=== PATIENT | male | born 1950 | race Caucasian/White ===

== ENCOUNTER → 2016-08-05 | Outpatient (CLI) | payer OTHER ==
[2013-04-16 08:20] VITALS: BP 138/87
--- NOTE | 2016-08-05 13:00 | CT ---
HISTORY: Bilateral flank and low pelvic pain. History of prostate cancer. Study: CT abdomen and pelvis without IV or oral contrast Comparison: No priors Technique: Multiple axial images of the abdomen and pelvis were obtained from the lung bases to the pubic symph ysis without the administration of IV or oral contrast. Coronal and sagittal images are also review ed. Dose reduction techniques utilized automatic exposure control. Findings: There is elevation of the right hemidiaphragm with some linear atelectasis present in the right lung base. There are right and left coronary artery calcifications. The liver, spleen, pancreas, kidneys , and adrenal glands are unremarkable in their CT appearance. The gallbladder is unremarkable in its CT appearance. There are surgical clips present in the region of the esophagogastric junction. No significant mesenteric lymphadenopathy or stranding can be observed. No free fluid or free air is s een within the abdomen. No bowel wall thickening or bowel dilatation is present. Appendix is not di scretely identified. No pericecal mass or fluid collection seen. The colon is unremarkable. Specifi lizzy, there is no diverticulosis noted within the sigmoid colon. The urinary bladder is grossly unr emarkable. there is evidence of prostatectomy. A penile prosthesis is present with the reservoir pre sent in the right lower abdomen. There is considerable artifact present from patient's prosthesis. No acute osseous changes are seen. IMPRESSION: No renal mass, stone or hydronephrosis is seen. No evidence of bowel obstruction or perforation. Total prostatectomy with penile prosthesis. The resumed for is present in the right lower abdomen re gion. Right hip arthroplasty. Reported By:
== END ==
LOC: RAD 11:37
PROVIDERS: ATTEND Internal Medicine
DX: R31.0 Gross hematuria (principal)
CPT/HCPCS: 74176

== ENCOUNTER → 2016-09-12 | Outpatient (CLI) | payer SELFPAY ==
[2013-04-16 08:20] VITALS: BP 138/87
--- NOTE | 2016-09-12 11:46 | CT ---
CT Calcium Score Clinical information: 65-year-old male for coronary artery disease risk assessment. Comparison: CT thorax April 14, 2013. ECG Gating: Prospective Scan range: Pulmonary artery bifurcation to diaphragm. Findings: Examination quality: Good. Limitation: None. Total calcium score: 973 Total volume score: 798 mm3 Percentile: 75-90 % Artery scores Left main coronary artery: 34 Left anterior descending artery: 430 Left circumflex artery: 229 Right coronary artery: 280 Other findings: Cardiac chambers: Unremarkable. Cardiac valves: Unremarkable. Thoracic aorta: Unremarkable. Lungs: Unremarkable. Upper abdomen: Unremarkable. Impression: Total calcium score 973 suggest extensive atherosclerotic plaque with high likelihood of significant coronary narrowing and high risk of cardiac event within the next 5 years. Reported By:
== END ==
LOC: RAD 09:27
PROVIDERS: ATTEND Internal Medicine
DX: Z13.6 Encounter for screening for cardiovascular disorders (principal)

== ENCOUNTER 2023-02-12 15:19 | Inpatient (IN) ==
[2023-02-12] MEDS ORDERED: TUSSIONEX PENNKINETIC SUSP PO PRN (16:24)
[2023-02-12] MEDS ORDERED: XOPENEX 1.25 MG/3 ML NEBULE NEB ONE (16:30)
[2023-02-12 16:35] VITALS: BMI 31.0
--- NOTE | 2023-02-12 16:40 | EKG ---
Test Reason : sob Blood Pressure : */* mmHG Vent. Rate : 69 BPM Atrial Rate : 69 BPM P-R Int : 162 ms QRS Dur : 90 ms QT Int : 416 ms P-R-T Axes : 37 -6 39 degrees QTc Int : 445 ms Sinus rhythm with premature atrial complexes Otherwise normal ECG No previous ECGs available Confirmed by Jesus Chambers MD ([id number]) on 02/13/2023 10:07:06 AM Referred By: Confirmed By: Jesus Chambers MD
[2023-02-12] MEDS ORDERED: NS 1/2 1,000 ML IV 1,000 ML IV ONE (16:52)
[2023-02-12] MEDS: PULMICORT NEB TX 0.5 MG NEB SCH ×2 (16:52→20:51)
[2023-02-12] MEDS: XOPENEX 1.25 MG/3 ML NEBULE NEB SCH ×2 (16:59→20:51)
[2023-02-12] MEDS: ROBITUSSIN DM PO SCH ×2 (17:09→20:49)
[2023-02-12] MEDS: SOLU-Medrol 40 MG VIAL IV SCH ×2 (17:09→21:01)
[2023-02-12] MEDS: VSL#3 PO SCH (17:09)
[2023-02-12] MEDS: NS 1/2 1,000 ML IV 1,000 ML IV SCH (17:10)
[2023-02-12 17:14] LABS: HEMOGLOBIN 11.7 g/dL (13.5-18.0)
[2023-02-12 17:17] LABS: BASOPHILS # (AUTO) 0.1 X10^3/uL (0.0-0.1); BASOPHILS % (AUTO) 0.8 % (0.2-1.0); EOSINOPHILS # (AUTO) 0.1 x10^3/uL (0.0-0.2); EOSINOPHILS % (AUTO) 1.1 % (0.9-2.9); LYMPHOCYTES # (AUTO) 2.3 X10^3/uL (1.3-2.9); LYMPHOCYTES % (AUTO) 19.4 % (21.0-51.0); MEAN CORPUSCULAR HEMOGLOBIN 31.1 pg (27.0-34.0); MEAN CORPUSCULAR HGB CONC 32.5 g/dL (33.0-35.0); MEAN CORPUSCULAR VOLUME 95.5 fL (80.0-100.0); MEAN PLATELET VOLUME 8.9 fL (7.4-11.0); MONOCYTES # (AUTO) 1.2 x10^3/uL (0.3-0.8); MONOCYTES % (AUTO) 10.4 % (0.0-13.0); NEUTROPHILS # (AUTO) 7.9 x10^3/uL (2.2-4.8); NEUTROPHILS % (AUTO) 68.3 % (42.0-75.0); PLATELET COUNT 267 X10^3/uL (150.0-450.0); RED BLOOD COUNT 3.77 X10^6/uL (4.7-6.0); RED CELL DISTRIBUTION WIDTH 15.9 % (11.6-16.5); WHITE BLOOD COUNT 11.6 X10^3/uL (3.6-10.0)
[2023-02-12 17:27] LABS: ALANINE AMINOTRANSFERASE 126 Units/L (12-78); ALBUMIN 2.9 g/dL (3.4-5.0); ALKALINE PHOSPHATASE 55 Units/L (46-116); ASPARTATE AMINO TRANSFERASE 39 Units/L (15-37); BLOOD UREA NITROGEN 33 mg/dL (7-18); CALCIUM 8.5 mg/dL (8.5-10.1); CARBON DIOXIDE 29.6 mmol/L (21-32); CHLORIDE 101 mmol/L (98-107); COR CA(FOR HYPOALB) 9.4 mg/dL (8.5-10.1); CREATININE 1.31 mg/dL (0.70-1.30); GLUCOSE 93 mg/dL (65-99); POTASSIUM 3.7 mmol/L (3.5-5.1); SODIUM 139 mmol/L (136-145); TOTAL PROTEIN 6.5 g/dL (6.4-8.2); eGFR NON BLACK RACES 57 (>60)
[2023-02-12] MEDS: LEVAQUIN PREMIX IV 750 MG 750 MG/150 ML BAG IV SCH (17:43)
[2023-02-12] MEDS ORDERED: LEVAQUIN PREMIX IV 750 MG 750 MG/150 ML BAG IV ONE (17:47)
[2023-02-12] MEDS ORDERED: OMNIPAQUE 350 mg/mL 100 mL BTL 100 ML ONE (19:56)
[2023-02-12] MEDS ORDERED: NS 100 ML IV 100 ML ONE (19:56)
[2023-02-12] MEDS ORDERED: CONSULT PHARMACY - POTASSIUM & MAGNESIUM XX SCH (20:00)
--- NOTE | 2023-02-12 20:43 | CT ---
EXAM: CTA CHEST WITH INTRAVENOUS CONTRASTHISTORY: Elevated D-dimer.TECHNIQUE: Spiral axial CT images are obtained through the chest with the administration of intravenous contrast. Coronal, sagittal and 3D MIP images are reformatted.DOSIMETRY: Total DLP 307.38 mGycm; CTDI 53.88 mGyCOMPARISON: None available.FINDINGS:CARDIOVASCULAR: There is no evidence for pulmonary embolic disease. There is severe coronary atherosclerosis. There is borderline cardiomegaly with four-chamber enlargement. No pericardial effusion is seen. There is aortic atherosclerosis with approximately 4.2 cm fusiform ascending thoracic aortic aneurysm; no dissection or rupture.MEDIASTINUM AND ALON: No mass lesion, lymphadenopathy, emphysema, or abnormal fluid collection is seen.LUNGS: There is approximately 7 cm asymmetrical elevation of the right hemidiaphragm (cannot rule out diaphragmatic paralysis or any penetration), with resultant compressive consolidative right posterior lower lobe/basilar atelectasis (with air bronchograms). There is no lung mass, lung nodule, or endobronchial obstructing lesion seen. No pleural effusion or pneumothorax is evident.CHEST WALL: There are no chest wall lesions seen. The visualized bony structures are within normal limits. No axillary lymphadenopathy is noted.UPPER ABDOMEN: Limited views through the upper abdomen demonstrate no gross acute abnormality. Approximately 3 cm right upper pole renal cyst.IMPRESSION:1. No evidence for pulmonary embolic disease.2. Severe coronary atherosclerosis.3. Borderline cardiomegaly with four-chamber enlargement.4. Aortic atherosclerosis with approximately 4.2 cm fusiform ascending thoracic aortic aneurysm; no dissection or rupture.5. No acute parenchymal infiltrate, pleural effusion, or pneumothorax seen.6. Approximately 7 cm asymmetrical elevation of the right hemidiaphragm (cannot rule out diaphragmatic paralysis or any penetration), with resultant compressive consolidative right posterior lower lobe/basilar atelectasis (with air bronchograms).THIS IS AN ELECTRONICALLY VERIFIED FINAL [id number]/12/2023 8:40 PM - Electronically signed by Florentino Jesus
[2023-02-12] MEDS ORDERED: K-DUR TAB 20 MEQ PO SCH (21:00)
[2023-02-13] MEDS ORDERED: NS 1/2 1,000 ML IV 1,000 ML IV ONE ×2 (04:47→21:34)
[2023-02-13] MEDS: SOLU-Medrol 40 MG VIAL IV SCH ×3 (05:11→21:34)
[2023-02-13 05:22] LABS: BASOPHILS % (AUTO) 0.2 % (0.2-1.0); HEMATOCRIT 34.7 % (42.0-54.0); HEMOGLOBIN 11.5 g/dL (13.5-18.0); LYMPHOCYTES # (AUTO) 0.4 X10^3/uL (1.3-2.9); LYMPHOCYTES % (AUTO) 4.9 % (21.0-51.0); MEAN CORPUSCULAR HEMOGLOBIN 31.4 pg (27.0-34.0); MEAN CORPUSCULAR HGB CONC 33.3 g/dL (33.0-35.0); MEAN CORPUSCULAR VOLUME 94.5 fL (80.0-100.0); MEAN PLATELET VOLUME 8.5 fL (7.4-11.0); MONOCYTES # (AUTO) 0.2 x10^3/uL (0.3-0.8); NEUTROPHILS # (AUTO) 7.5 x10^3/uL (2.2-4.8); NEUTROPHILS % (AUTO) 92.9 % (42.0-75.0); PLATELET COUNT 243 X10^3/uL (150.0-450.0); RED BLOOD COUNT 3.67 X10^6/uL (4.7-6.0); RED CELL DISTRIBUTION WIDTH 16.3 % (11.6-16.5)
[2023-02-13 05:40] LABS: ALANINE AMINOTRANSFERASE 108 Units/L (12-78); ALBUMIN 2.7 g/dL (3.4-5.0); ALKALINE PHOSPHATASE 55 Units/L (46-116); ASPARTATE AMINO TRANSFERASE 28 Units/L (15-37); BLOOD UREA NITROGEN 27 mg/dL (7-18); CALCIUM 8.5 mg/dL (8.5-10.1); CHLORIDE 102 mmol/L (98-107); COR CA(FOR HYPOALB) 9.5 mg/dL (8.5-10.1); COR NA(FOR HYPERGLY) 138 mmol/L (136-145); CREATININE 1.04 mg/dL (0.70-1.30); GLUCOSE 157 mg/dL (65-99); POTASSIUM 4.6 mmol/L (3.5-5.1); SODIUM 137 mmol/L (136-145); TOTAL PROTEIN 6.3 g/dL (6.4-8.2); eGFR NON BLACK RACES > 60 (>60)
[2023-02-13] MEDS: NS 1/2 1,000 ML IV 1,000 ML IV SCH ×2 (05:59→21:36)
[2023-02-13 06:03] LABS: PLATELET MORPHOLOGY COMMENT NORMAL (NORMAL)
[2023-02-13 06:05] LABS: BAND NEUTROPHILS % 2 % (0-10)
--- NOTE | 2023-02-13 06:35 | RAD ---
EXAM:Two-view chestHISTORY:PneumoniaCOMPARISON:CTA chest 02/12/2023FINDINGS:Heart size is normal. Shaniqua are normal. Right hemidiaphragm is markedly elevated. No acute alveolar infiltrates or pleural effusions are identified. Bony thorax is unremarkable with exception of old healed rib fractures on the left and a right shoulder hemiarthroplasty.IMPRESSION:No definite infiltratesMarkedly elevated right hemidiaphragmTHIS IS AN ELECTRONICALLY VERIFIED FINAL GAMDAH1002/13/2023 6:32 AM - Electronically signed by Jasvir Olmedo MD
[2023-02-13] MEDS: VSL#3 PO SCH (08:28)
[2023-02-13] MEDS: LEVAQUIN PREMIX IV 750 MG 750 MG/150 ML BAG IV SCH (08:28)
[2023-02-13] MEDS: ROBITUSSIN DM PO SCH ×3 (08:29→21:34)
[2023-02-13] MEDS: XOPENEX 1.25 MG/3 ML NEBULE NEB SCH ×4 (08:45→21:00)
[2023-02-13] MEDS: PULMICORT NEB TX 0.5 MG NEB SCH ×2 (08:45→21:00)
[2023-02-13] MEDS: LOVENOX INJ 40 MG SYR SC SCH (11:05)
--- NOTE | 2023-02-13 13:21 | DR.UPDATE ---
H&P Update H&P Reviewed: Yes Any changes to H&P?: Yes Changes noted:: WAS A DIRECT ADMISSION FOR BACTERIAL BRONCHOPNEUMONIA AND COVID-19. AIT SWAB IN THE OFFICE WAS POSITIVE FOR KLEBISELLA PNEUMONIAE AT THE BEGINNING OF THE WEEK. HE WAS PRESCRIBED PAXLOVID LAST WEEK WHEN HE FIRST TESTED POSITIVE FOR COVID AND WAS THEN GIVEN A ROCEPHIN INJECTION AND PRESCRIBED AND CEFDINIR 300MG BID ON 02/10/23 FOR THE KLEBSIELLA. ON ADMISSION, HIS VITALS WERE: 98.7-69-18-97%-138/87. LABS WERE OBTAINED. WBC 11.6, RBC 3.77, HGB 11.7, HCT 36.0, PLT COUNT 267, D-DIMER 2.24, SODIUM 139, POTASSIUM 3.7, CHLORIDE 101, CARBON DIOXIDE 29.6, BUN 33, CREATININE 1.31, GLUCOSE 93, CALCIUM 8.5, TOTAL BILI 0.30, AST 39, ALT 126, ALK PHOS 55, TROPONIN 10.7, CRP 3.50, TOTAL PROTEIN 6.5, ALBUMIN 2.9. A CHEST CTA WAS OBTAINED ON ADMISSION AND REVEALED: 1. No evidence for pulmonary embolic Disease. 2. Tara re coronary atherosclerosis. 3. Borderline cardiomegaly with four-chamber enlargement. 4. Aortic atherosclerosis with approximately 4.2 cm fusiform ascending thoracic aortic aneurysm; no dissection or rupture. 5. No acute parenchymal infiltrate, pleural effusion, or pneumothorax seen. 6. Approximately 7 cm asymmetrical elevation of the right hemidiaphragm (cannot rule out diaphragmatic paralysis orany penetration), with resultant compressive consolidative right posterior lower lobe/basilar atelectasis (with air bronchograms). EKG WAS OBTAINED AND REVEALED: Sinus rhythm with premature atrial complexes. HR 69 BPM. ON ADMISSION, HE WAS STARTED ON NORMAL SALINE AT 75 ML/HR, LEVAQUIN 750MG IV DAILY, LOVENOX 40MG SC DAILY, PULMICORT NEBS BID, XOPENEX NEBS QID, TUSSIONEX Q12H PRN, SOLU-MEDROL 80MG IV Q8H, ROBITUSSIN DM 10ML QID, AND PROBIOTICS. OTHERWISE, WE PLAN TO FOLLOW UP WITH AM LABS AND CHEST XRAY AND CONTINUE TO MONITOR. TIME SPENT ON CLINICAL ASSESSMENT, REVIEWING LABS AND IMAGING, DECISION MAKING, AND DOCUMENTATION GREATER THAN 75 MINUTES. Patient was examined?: Yes Vital Signs: Temp Pulse Pulse Resp BP BP Pulse Ox 02/13/23 08:45 91 H 94 L 02/13/23 08:45 02/13/23 08:00 98.8 F 94 H 18 124/70 94 L 02/13/23 07:00 02/13/23 04:00 97.7 F 86 20 129/76 96 02/12/23 23:38 97.7 F 91 H 20 117/60 96 02/12/23 20:00 98.4 F 77 20 92/63 96 02/12/23 19:00 02/12/23 20:51 68 95 02/12/23 20:51 02/12/23 16:59 69 97 02/12/23 16:58 02/12/23 16:24 69 18 138/87 97 02/12/23 16:05 O2 Del Method FiO2 02/13/23 08:45 02/13/23 08:45 Room Air 02/13/23 08:00 02/13/23 07:00 Nasal Cannula 02/13/23 04:00 02/12/23 23:38 02/12/23 20:00 Room Air 02/12/23 19:00 Nasal Cannula 02/12/23 20:51 02/12/23 20:51 Room Air 02/12/23 16:59 02/12/23 16:58 Room Air 21 02/12/23 16:24 Nasal Cannula 02/12/23 16:05 Nasal Cannula
[2023-02-13] MEDS ORDERED: ULTRAM PO PRN (20:56)
[2023-02-13] MEDS ORDERED: MEDROXYPROGESTERONE 2.5 MG PO SCH (21:00)
--- NOTE | 2023-02-14 04:46 | RAD ---
HISTORYSOB Relevant Clinical InformationSTUDYCHEST, 1 [id number]/20/2023FINDINGSThe trachea is midline. The cardiac silhouette is unremarkable. The right hemidiaphragm is elevated. The lungs are clear without focal infiltrate or effusion. The bony thorax is unremarkable.IMPRESSIONNo acute cardiopulmonary findings .Electronically signed by: Ivan Pacheco (Feb 14, 2023 04:45:42)
[2023-02-14] MEDS: SOLU-Medrol 40 MG VIAL IV SCH ×4 (05:31→22:57)
[2023-02-14 06:11] LABS: BASOPHILS % (AUTO) 0.1 % (0.2-1.0); HEMATOCRIT 33.7 % (42.0-54.0); HEMOGLOBIN 11.2 g/dL (13.5-18.0); LYMPHOCYTES # (AUTO) 0.5 X10^3/uL (1.3-2.9); LYMPHOCYTES % (AUTO) 3.7 % (21.0-51.0); MEAN CORPUSCULAR HEMOGLOBIN 31.5 pg (27.0-34.0); MEAN CORPUSCULAR HGB CONC 33.3 g/dL (33.0-35.0); MEAN CORPUSCULAR VOLUME 94.6 fL (80.0-100.0); MEAN PLATELET VOLUME 8.3 fL (7.4-11.0); MONOCYTES # (AUTO) 0.4 x10^3/uL (0.3-0.8); MONOCYTES % (AUTO) 2.6 % (0.0-13.0); NEUTROPHILS # (AUTO) 12.8 x10^3/uL (2.2-4.8); NEUTROPHILS % (AUTO) 93.6 % (42.0-75.0); PLATELET COUNT 219 X10^3/uL (150.0-450.0); RED BLOOD COUNT 3.56 X10^6/uL (4.7-6.0); RED CELL DISTRIBUTION WIDTH 16.2 % (11.6-16.5); WHITE BLOOD COUNT 13.7 X10^3/uL (3.6-10.0)
[2023-02-14 06:21] LABS: ALANINE AMINOTRANSFERASE 96 Units/L (12-78); ALBUMIN 2.6 g/dL (3.4-5.0); ALKALINE PHOSPHATASE 50 Units/L (46-116); ASPARTATE AMINO TRANSFERASE 23 Units/L (15-37); BLOOD UREA NITROGEN 25 mg/dL (7-18); CALCIUM 8.4 mg/dL (8.5-10.1); CARBON DIOXIDE 24.8 mmol/L (21-32); CHLORIDE 101 mmol/L (98-107); COR CA(FOR HYPOALB) 9.5 mg/dL (8.5-10.1); COR NA(FOR HYPERGLY) 137 mmol/L (136-145); CREATININE 1.14 mg/dL (0.70-1.30); GLUCOSE 115 mg/dL (65-99); POTASSIUM 3.8 mmol/L (3.5-5.1); SODIUM 137 mmol/L (136-145); TOTAL PROTEIN 6.2 g/dL (6.4-8.2); eGFR NON BLACK RACES > 60 (>60)
[2023-02-14 06:38] LABS: BAND NEUTROPHILS % 1 % (0-10)
[2023-02-14 06:39] LABS: PLATELET MORPHOLOGY COMMENT NORMAL (NORMAL)
[2023-02-14] MEDS ORDERED: CONSULT PHARMACY - POTASSIUM & MAGNESIUM XX SCH (07:00)
[2023-02-14] MEDS: LOVENOX INJ 40 MG SYR SC SCH (08:43)
[2023-02-14] MEDS: ZYLOPRIM PO SCH ×2 (08:43→09:58)
[2023-02-14] MEDS: LEVAQUIN PREMIX IV 750 MG 750 MG/150 ML BAG IV SCH (08:43)
[2023-02-14] MEDS: ROBITUSSIN DM PO SCH ×4 (08:43→21:18)
[2023-02-14] MEDS: PROVERA PO SCH ×3 (08:44→20:58)
[2023-02-14] MEDS: HYDROCHLOROTHIAZIDE 12.5 MG CAP PO SCH ×2 (08:44→10:01)
[2023-02-14] MEDS: NORVASC TAB 5 MG PO SCH ×2 (08:44→09:59)
[2023-02-14] MEDS: CARDURA PO SCH ×2 (08:44→10:00)
[2023-02-14] MEDS: CELEBREX PO SCH ×2 (08:44→10:00)
[2023-02-14] MEDS: VSL#3 PO SCH (08:44)
[2023-02-14] MEDS: DIOVAN TAB 160 MG PO SCH ×2 (08:44→10:01)
[2023-02-14] MEDS: PULMICORT NEB TX 0.5 MG NEB SCH ×2 (08:54→21:25)
[2023-02-14] MEDS: XOPENEX 1.25 MG/3 ML NEBULE NEB SCH ×4 (08:54→21:25)
[2023-02-14] MEDS ORDERED: K-DUR TAB 20 MEQ PO SCH (09:00)
[2023-02-14] MEDS ORDERED: PATIENT'S HOME MEDICATION (Hydrochlorothiazide 12.5 mg tablet) PO SCH (09:00)
[2023-02-14] MEDS: NS 1/2 1,000 ML IV 1,000 ML IV SCH ×3 (11:18→20:56)
[2023-02-14] MEDS ORDERED: NS 1/2 1,000 ML IV 1,000 ML IV ONE ×2 (11:19→19:21)
[2023-02-14] MEDS ORDERED: VIBRAMYCIN IV ONE (11:20)
[2023-02-14] MEDS: VIBRAMYCIN 100 MG in D5W 250 ML IV 250 ML IV SCH ×2 (11:27→20:55)
[2023-02-14] MEDS ORDERED: MILK OF MAGNESIA PO PRN (16:36)
[2023-02-14] MEDS ORDERED: COLACE CAP 100 MG PO PRN (16:36)
[2023-02-15] MEDS: NS 1/2 1,000 ML IV 1,000 ML IV SCH (02:24)
--- NOTE | 2023-02-15 03:25 | RAD ---
HISTORYSOB Relevant Clinical InformationSTUDYCHEST, 1 [id number]/21/2023FINDINGSThe trachea is midline. The cardiac silhouette is unremarkable. There is persistent elevation of the right hemidiaphragm. The lungs are clear without focal infiltrate or effusion. The bony thorax is unremarkable.IMPRESSIONNo acute cardiopulmonary findings .Electronically signed by: Ivan Pacheco (Feb 15, 2023 03:24:01)
[2023-02-15] MEDS: SOLU-Medrol 40 MG VIAL IV SCH (05:51)
[2023-02-15 05:57] LABS: BASOPHILS % (AUTO) 0.2 % (0.2-1.0); HEMATOCRIT 31.7 % (42.0-54.0); HEMOGLOBIN 10.5 g/dL (13.5-18.0); LYMPHOCYTES # (AUTO) 0.6 X10^3/uL (1.3-2.9); LYMPHOCYTES % (AUTO) 4.4 % (21.0-51.0); MEAN CORPUSCULAR HEMOGLOBIN 31.2 pg (27.0-34.0); MEAN CORPUSCULAR HGB CONC 33.1 g/dL (33.0-35.0); MEAN CORPUSCULAR VOLUME 94.3 fL (80.0-100.0); MEAN PLATELET VOLUME 8.6 fL (7.4-11.0); MONOCYTES # (AUTO) 0.5 x10^3/uL (0.3-0.8); NEUTROPHILS # (AUTO) 12.4 x10^3/uL (2.2-4.8); NEUTROPHILS % (AUTO) 91.4 % (42.0-75.0); PLATELET COUNT 200 X10^3/uL (150.0-450.0); RED BLOOD COUNT 3.36 X10^6/uL (4.7-6.0); RED CELL DISTRIBUTION WIDTH 16.4 % (11.6-16.5); WHITE BLOOD COUNT 13.6 X10^3/uL (3.6-10.0)
[2023-02-15 06:06] LABS: ALANINE AMINOTRANSFERASE 125 Units/L (12-78); ALBUMIN 2.4 g/dL (3.4-5.0); ALKALINE PHOSPHATASE 46 Units/L (46-116); ASPARTATE AMINO TRANSFERASE 43 Units/L (15-37); BLOOD UREA NITROGEN 26 mg/dL (7-18); CALCIUM 8.2 mg/dL (8.5-10.1); CARBON DIOXIDE 25.8 mmol/L (21-32); CHLORIDE 103 mmol/L (98-107); COR CA(FOR HYPOALB) 9.5 mg/dL (8.5-10.1); CREATININE 0.92 mg/dL (0.70-1.30); GLUCOSE 104 mg/dL (65-99); POTASSIUM 4.1 mmol/L (3.5-5.1); SODIUM 136 mmol/L (136-145); TOTAL PROTEIN 5.4 g/dL (6.4-8.2); eGFR NON BLACK RACES > 60 (>60)
[2023-02-15 06:21] LABS: PLATELET MORPHOLOGY COMMENT NORMAL (NORMAL)
[2023-02-15] MEDS: PULMICORT NEB TX 0.5 MG NEB SCH ×2 (08:50→20:27)
[2023-02-15] MEDS: XOPENEX 1.25 MG/3 ML NEBULE NEB SCH ×4 (08:50→20:27)
[2023-02-15] MEDS: CELEBREX PO SCH (09:45)
[2023-02-15] MEDS: DIOVAN TAB 160 MG PO SCH (09:45)
[2023-02-15] MEDS: NORVASC TAB 5 MG PO SCH (09:50)
[2023-02-15] MEDS: LOVENOX INJ 40 MG SYR SC SCH (09:51)
[2023-02-15] MEDS: VSL#3 PO SCH (09:51)
[2023-02-15] MEDS: VIBRAMYCIN 100 MG in D5W 250 ML IV 250 ML IV SCH ×2 (09:51→21:06)
[2023-02-15] MEDS: LEVAQUIN PREMIX IV 750 MG 750 MG/150 ML BAG IV SCH (09:52)
[2023-02-15] MEDS: ROBITUSSIN DM PO SCH ×4 (09:56→21:06)
[2023-02-15] MEDS: CARDURA PO SCH ×2 (09:56→09:58)
[2023-02-15] MEDS: PROVERA PO SCH ×2 (09:58→22:32)
[2023-02-15] MEDS: HYDROCHLOROTHIAZIDE 12.5 MG CAP PO SCH (09:58)
[2023-02-15] MEDS: ZYLOPRIM PO SCH (09:59)
[2023-02-15] MEDS: LR 1,000 ML IV 1,000 ML IV SCH ×2 (10:49→21:07)
[2023-02-15] MEDS: PREDNISONE TAB 10 MG PO SCH (10:49)
[2023-02-15] MEDS: MAALOX or MYLANTA PO PRN ×2 (12:16→21:05)
[2023-02-16 04:20] VITALS: PULSE 62; RESP 18
[2023-02-16 05:21] LABS: BASOPHILS % (AUTO) 0.1 % (0.2-1.0); EOSINOPHILS % (AUTO) 0.1 % (0.9-2.9); HEMOGLOBIN 10.3 g/dL (13.5-18.0); LYMPHOCYTES # (AUTO) 1.5 X10^3/uL (1.3-2.9); LYMPHOCYTES % (AUTO) 16.9 % (21.0-51.0); MEAN CORPUSCULAR HEMOGLOBIN 31.9 pg (27.0-34.0); MEAN CORPUSCULAR HGB CONC 33.4 g/dL (33.0-35.0); MEAN CORPUSCULAR VOLUME 95.6 fL (80.0-100.0); MEAN PLATELET VOLUME 8.6 fL (7.4-11.0); MONOCYTES # (AUTO) 0.6 x10^3/uL (0.3-0.8); NEUTROPHILS # (AUTO) 6.6 x10^3/uL (2.2-4.8); NEUTROPHILS % (AUTO) 75.9 % (42.0-75.0); PLATELET COUNT 178 X10^3/uL (150.0-450.0); RED BLOOD COUNT 3.25 X10^6/uL (4.7-6.0); RED CELL DISTRIBUTION WIDTH 16.5 % (11.6-16.5); WHITE BLOOD COUNT 8.8 X10^3/uL (3.6-10.0)
--- NOTE | 2023-02-16 05:24 | RAD ---
HISTORYsob, covid + Relevant Clinical InformationSTUDYCHEST, 1 [id number]/22/2023FINDINGSThe trachea is midline. The cardiac silhouette is unremarkable. There is elevation of the right hemidiaphragm. The lungs are clear without focal infiltrate or effusion. The bony thorax is unremarkable. Old healed left rib fractures.IMPRESSIONElevated right hemidiaphragm.No active cardiopulmonary disease.Electronically signed by: Ivan Pacheco (Feb 16, 2023 05:22:58)
[2023-02-16 05:38] LABS: ALANINE AMINOTRANSFERASE 113 Units/L (12-78); ALBUMIN 2.2 g/dL (3.4-5.0); ALKALINE PHOSPHATASE 42 Units/L (46-116); ASPARTATE AMINO TRANSFERASE 29 Units/L (15-37); BLOOD UREA NITROGEN 30 mg/dL (7-18); CALCIUM 8.1 mg/dL (8.5-10.1); CARBON DIOXIDE 27.7 mmol/L (21-32); CHLORIDE 105 mmol/L (98-107); COR CA(FOR HYPOALB) 9.5 mg/dL (8.5-10.1); CREATININE 0.97 mg/dL (0.70-1.30); GLUCOSE 84 mg/dL (65-99); POTASSIUM 3.9 mmol/L (3.5-5.1); SODIUM 138 mmol/L (136-145); eGFR NON BLACK RACES > 60 (>60)
[2023-02-16] MEDS: LR 1,000 ML IV 1,000 ML IV SCH (05:52)
[2023-02-16 07:34] VITALS: BP 146/72; TEMP 97.9; O2SAT 96
[2023-02-16] MEDS: ROBITUSSIN DM PO SCH (08:40)
[2023-02-16] MEDS: PROVERA PO SCH ×2 (08:40→08:58)
[2023-02-16] MEDS: NORVASC TAB 5 MG PO SCH (08:42)
[2023-02-16] MEDS: VSL#3 PO SCH (08:42)
[2023-02-16] MEDS: LOVENOX INJ 40 MG SYR SC SCH (08:43)
[2023-02-16] MEDS: PREDNISONE TAB 10 MG PO SCH (08:43)
[2023-02-16] MEDS: PULMICORT NEB TX 0.5 MG NEB SCH (08:50)
[2023-02-16] MEDS: XOPENEX 1.25 MG/3 ML NEBULE NEB SCH (08:50)
[2023-02-16] MEDS: CARDURA PO SCH (08:57)
[2023-02-16] MEDS: CELEBREX PO SCH (08:57)
[2023-02-16] MEDS: DIOVAN TAB 160 MG PO SCH (08:57)
[2023-02-16] MEDS: ZYLOPRIM PO SCH (08:58)
[2023-02-16] MEDS: HYDROCHLOROTHIAZIDE 12.5 MG CAP PO SCH (08:58)
[2023-02-16] MEDS: LEVAQUIN PREMIX IV 750 MG 750 MG/150 ML BAG IV SCH (08:59)
[2023-02-16] MEDS: VIBRAMYCIN 100 MG in D5W 250 ML IV 250 ML IV SCH (08:59)
== END 2023-02-16 11:55 | disposition home or self-care (01) | DRG 193 ==
LOC: MED/SURG → OBSVTOIN 15:56
PROVIDERS: ADMIT Internal Medicine; ATTEND Internal Medicine
DX: J13 Pneumonia due to Streptococcus pneumoniae; I25.10 Atherosclerotic heart disease of native coronary artery without angina pectoris; R79.82 Elevated C-reactive protein (CRP); J12.82 Pneumonia due to coronavirus disease 2019; E11.65 Type 2 diabetes mellitus with hyperglycemia; U07.1 COVID-19; R06.02 Shortness of breath; R74.01 Elevation of levels of liver transaminase levels